=== PATIENT | female | born 1980 | race African-American/Black ===

== ENCOUNTER 2021-03-30 15:00 | Outpatient (CLI) | payer OTHER, SELFPAY ==
--- NOTE | ~2021-03-30 | MM_ITS ---
EXAMINATION: MM screening [facility] HISTORY: Screening mammogram TECHNIQUE: Craniocaudal and mediolateral oblique 3-D tomosynthesis images were obtained and synthetic 2-D images were generated. CAD analysis was submitted and interpreted. COMPARISON: None, baseline BREAST PARENCHYMAL COMPOSITION: There are scattered areas of fibroglandular density. FINDINGS: There is no evidence of suspicious mass, calcification, or architectural distortion to sugg est malignancy in either breast. IMPRESSION: 1. No mammographic evidence of malignancy. 2. Recommend routine screening mammography in one year. BI-RADS Category 1: Negative Reviewed, dictated and finalized at location A. RAM DIR
== END 2021-03-30 15:01 | disposition home or self-care (01) ==
LOC: ANHIMG 15:03
PROVIDERS: Visit Provider Obstetrics & Gynecology
DX: Z12.31 Encounter for screening mammogram for malignant neoplasm of breast (principal)
CPT/HCPCS: 77063; 77067

== ENCOUNTER 2021-04-13 07:00 | Emergency (ER) | payer OTHER, SELFPAY ==
[2021-04-13] VITALS (8 sets, daily range): BP systolic 111–117; BP diastolic 65–82; PULSE 66–82; RESP 15–18; TEMP 37; O2SAT 100
[2021-04-13 08:30] LABS: Add Urine Microscopic? YES; Appearance Urine Cloudy (Clear); Bacteria Urine Trace /hpf; Bilirubin Urine Negative (Negative); Blood Urine Negative (Negative); Color Urine Yellow (Yellow); Glucose Urine UA Negative (Negative); Ketones Urine Negative (Negative); Leukocyte Esterase Ur Negative LEU/UL (Negative); Mucus Urine Heavy /lpf; Nitrate Urine Negative (Negative); Protein Urine Negative (Negative); RBC Urine 0-2 /hpf (0-2); Specific Grav Ur 1.027 (1.001-1.035); Squamous Epithelial Cell Urine Moderate /hpf (Few); WBC Urine 0-3 /hpf
[2021-04-13] MEDS: KETOROLAC (*BKC) 60 MG/2 ML VIAL IM (09:16)
[2021-04-13] MEDS: CYCLOBENZAPRINE HCL 10 MG TABLET PO (09:23)
--- NOTE | 2021-04-13 11:05 | ED.BACK ---
HPI - Back Pain/Injury General Chief Complaint: Back Pain/Injury Stated Complaint: back pain Time Seen by Provider: 04/13/21 07:27 Source: patient Mode of arrival: ambulatory Limitations: no limitations History of Present Illness HPI Narrative: 40-year-old female Patient works at the [employer] She does not recall a distinct moment of injury but she has had pain in her left back worsened by movements and twisting for the past 2 days No numbness, weakness, radicular pain She does not have any urinary symptoms, no hematuria, no dysuria No abdominal pain, no nausea or vomiting, no fever, good appetite, no Covid exposures Related Data Allergies Allergy/AdvReac Type Severity Reaction Status Date / Time No Known Allergies Allergy Unverified 05/14/11 12:53 Review of Systems Review of Systems: All systems reviewed & are unremarkable except as noted in HPI and below Constitutional: Constitutional: Denies chills, Denies fever(s) and Denies headache(s) ENT: Denies headache(s) and Denies sore throat Cardiovascular: Cardiovascular: Denies chest pain and Denies dyspnea Respiratory: Respiratory: Denies cough and Denies dyspnea Gastrointestinal: Gastrointestinal: Denies abdominal pain, Denies bloating, Denies diarrhea, Denies nausea and Denies vomiting Genitourinary: Genitourinary: Denies hematuria, Denies urinary frequency, Denies nocturia and Denies dysuria Musculoskeletal: Musculoskeletal: Reports back pain, Denies deformity, Denies arthralgias, Denies joint swelling and Denies numbness Integumentary/Breasts: Skin/Breast: Denies rash and Denies wounds Neurologic: Denies headache(s), Denies focal weakness and Denies numbness Psychiatric: Psychiatric: Reports no additional psychiatric complaints Endocrine: Endocrine: Reports no additional endocrine complaints Hematologic/Lymphatic: Hematologic/Lymphatic: Reports no additional hematologic/lymphatic complaints Allergic/Immunologic: Allergic/Immunologic: Reports no additional allergic/immunologic complaints [facility] Family History Family History Father Patient's father is in good health Sibling Patient's sister is in good health Mother Patient's mother is Other Diabetes mellitus Social History Social History Smoking status: Former smoker Smoking end date: 05/08/03 Alcohol intake: current Exam Const: General: cooperative, healthy appearing, no acute distress and alert Orientation/consciousness: patient oriented x3 (alert) HENMT: Head: normal to inspection, normocephalic and atraumatic Ears: external ears normal General nose exam: no epistaxis Eyes: Conjunctivae: conjunctivae normal EOM: EOMs intact bilaterally Neck: Neck: normal visual inspection, supple and no JVD Chest: Chest palpation & inspection: normal inspection of the chest and no tenderness Resp: Effort & Inspection: normal respiratory effort and not labored Auscultation: clear to auscultation bilaterally, no rales, no rhonchi, no wheezes and other (BS =) Cardio: Rate: regular rate Rhythm: regular rhythm Heart sounds: no murmurs GI: Inspection: non-distended GI Palp: Yes Soft to palpation, No Tenderness to palpation present (GI), No Guarding due to palpation present (GI) and No Rebound tenderness present : General: Yes no CVA tenderness Back/Spine/Pelvis: Other: There is some mild tenderness posterior laterally and twisting movements of the trunk and forward flexion do exacerbate symptoms in that area, although leaning to the sides does not Skin: General skin exam: normal color and no rashes or lesions noted Rashes: no rashes Neuro: General: patient oriented x3 (alert) and moves all extremities Speech: normal speech Extrem: General: normal to inspection and no pedal edema Psych: Affect: normal affect Course Vital Signs Vital signs: Vital
== END 2021-04-13 11:50 | disposition home or self-care (01) ==
PROVIDERS: Emergency Provider Emergency Medicine
DX: S39.011A Strain of muscle, fascia and tendon of abdomen, initial encounter (principal); Z87.891 Personal history of nicotine dependence; X58.XXXA Exposure to other specified factors, initial encounter
CPT/HCPCS: 81001; 81025; 96372; 99283; A9270; J1885

== ENCOUNTER 2022-01-10 05:44 | Emergency (ER) | payer OTHER, SELFPAY ==
--- NOTE | ~2022-01-10 | XR_ITS ---
EXAMINATION: XR finger 1st LT min 2V DATE: 01/10/2022 06:54 INDICATION: Left thumb injury. TECHNIQUE: 3 views of left thumb were obtained. COMPARISON: None. FINDINGS: Bone alignment is normal. There is a small calcification at radial aspect of head of first metacarpal. Joint spaces are normal. IMPRESSION: 1. Small calcification at radial aspect of head of first metacarpal that may be an avulsion fracture. Reviewed, dictated and finalized at location A.
[2022-01-10 05:48] VITALS: BP 115/80; PULSE 77; RESP 17; TEMP 36.6; O2SAT 100
--- NOTE | 2022-01-10 06:13 | ED.GENADULT ---
HPI - General Adult General Chief complaint: Extremity Injury, Upper Stated complaint: left arm pain Time Seen by Provider: 01/10/22 05:56 History of Present Illness HPI narrative: Patient is a 41-year-old female who presents ER with pain to her left thumb. She was working last night with some machinery and felt a pop. She maintains range of motion of the thumb but has pain over the palmar aspect of the MCP. No numbness or tingling. Has not taken any pain medication. Patient also reports some chronic pain to the left shoulder that is been ongoing for months. Worse when she lays on it. Intense full range of motion of the shoulder. Has not seen an orthopedic despite her concerns for rotator cuff issue. No known injury to the area. Related Data Allergies Allergy/AdvReac Type Severity Reaction Status Date / Time No Known Allergies Allergy Verified 01/10/22 05:52 Review of Systems Musculoskeletal: Musculoskeletal: Reports arthralgias, Denies joint swelling and Denies muscle cramps Integumentary/Breasts: Skin/Breast: Denies erythema and Denies rash Neurologic: Denies focal weakness and Denies numbness PMFSH Past Medical History Medical History (Updated 01/10/22 @ 06:28 by Silas Bonilla MD) Healthy female adult Surgical History Surgical History (Updated 01/10/22 @ 06:26 by Silas Bonilla MD) No history of previous surgery Family History Family History Father Patient's father is in good health Sibling Patient's sister is in good health Mother Patient's mother is Other Diabetes mellitus Social History Social History Smoking status: Former smoker Smoking end date: 05/08/03 Alcohol intake: current Exam Narrative: GENERAL: Well-appearing, well-nourished, and in no acute distress. HEAD: Normocephalic, atraumatic. CHEST: Clear to auscultation. No respiratory distress. HEART: Regular rate and rhythm. Normal peripheral pulses. EXTREMITIES: Normal range of motion. No edema. Tender to palpation over the palmar aspect of the first MCP. No reproducible tenderness to the left shoulder. NEURO: Alert and oriented x3. PSYCH: Normal mood and affect. Course Course Emergency Course: Patient resting comfortably. Given ibuprofen for pain. Patient placed on 1 foam splint for comfort. Vital Signs Vital signs: Vital Signs Temperature 97.8 F 01/10/22 05:48 Pulse Rate 77 01/10/22 05:48 Respiratory Rate 17 01/10/22 05:48 Blood Pressure 115/80 01/10/22 05:48 Pulse Oximetry 100 01/10/22 05:48 Oxygen Delivery Room Air 01/10/22 05:48 Temperature 97.8 F 01/10/22 05:48 Pulse Rate 77 01/10/22 05:48 Respiratory Rate 17 01/10/22 05:48 Blood Pressure 115/80 01/10/22 05:48 Pulse Oximetry 100 01/10/22 05:48 Oxygen Delivery Room Air 01/10/22 05:48 Procedures Orthopedic Splinting/Casting Injury #1: Splinting/Casting Date: 01/10/22 Splinting/Casting Time: 06:59 Side: left Upper Extremity Injury Location: finger (thumb) Upper Extremity Immobilizer: aluminum form splint Pre-Procedure Neuro Vascular Exam: normal Post-Procedure Neuro Vascular Exam: normal Medical Decision Making Vital Signs Vital Signs: Vital Signs Temperature 97.8 F 01/10/22 05:48 Pulse Rate 77 01/10/22 05:48 Respiratory Rate 17 01/10/22 05:48 Blood Pressure 115/80 01/10/22 05:48 Pulse Oximetry 100 01/10/22 05:48 Oxygen Delivery Room Air 01/10/22 05:48 Temperature 97.8 F 01/10/22 05:48 Pulse Rate 77 01/10/22 05:48 Respiratory Rate 17 01/10/22 05:48 Blood Pressure 115/80 01/10/22 05:48 Pulse Oximetry 100 01/10/22 05:48 Oxygen Delivery Room Air 01/10/22 05:48 Imaging Data My impression: X-ray left thumb: No fracture. Discharge Plan Discharge Clinical Impression:
[2022-01-10] MEDS: IBUPROFEN 600 MG TABLET PO (06:16)
== END 2022-01-10 07:11 | disposition home or self-care (01) ==
PROVIDERS: Emergency Provider Emergency Medicine
DX: S63.602A Unspecified sprain of left thumb, initial encounter (principal); Z87.891 Personal history of nicotine dependence
CPT/HCPCS: 29130; 73140; 99283; A9270

== ENCOUNTER 2022-05-15 14:08 | Emergency (ER) | payer SELFPAY ==
[2022-05-15] VITALS (10 sets, daily range): BP systolic 129–153; BP diastolic 76–86; PULSE 67–86; RESP 13–23; TEMP 36.7; O2SAT 100
--- NOTE | ~2022-05-15 | XR_ITS ---
EXAMINATION: XR chest 2V 05/15/2022 14:24 INDICATION: Generalized chest pain PROCEDURE: 2 view chest COMPARISON: No prior studies for comparison. FINDINGS: The lungs are clear. The cardiomediastinal silhouette is within normal limits. There are no pleural effusions. There is no pneumothorax suspected. IMPRESSION: 1: NO ACUTE CARDIOPULMONARY DISEASE. Reviewed, dictated and finalized at location A. [employer]
--- NOTE | 2022-05-15 14:09 | ECG_ITS ---
Measurements Intervals Adel Rate: 78 P: 43 DC: 140 QRS: -5 QRSD: 93 T: 31 QT: 386 QTc: 440 Interpretive Statements SINUS RHYTHM DELAYED PRECORDIAL R/S TRANSITION BORDERLINE ECG NO PREVIOUS ECG AVAILABLE FOR COMPARISON Electronically Signed On 05-15-2022 15:12:25 [employer] by Giovanni Oleary D.O.
[2022-05-15 14:25] LABS: Basophils Absolute Auto 0.1 K/mm3 (0.0-0.1); Basophils Percent Auto 0.8 % (0.2-1.2); Eosinophils Absolute Auto 0.2 K/mm3 (0-0.3); Hematocrit 40.4 % (37.0-47.0); Hemoglobin 12.7 g/dL (12.0-15.0); Immature Granulocyte Absolute 0.02 K/mm3 (0.00-0.031); Immature Granulocyte Percent A 0.3 % (0-0.5); Lymphocytes Absolute Auto 1.21 K/mm3 (0.9-3.2); Lymphocytes Percent Auto 20.1 % (18.3-44.2); Mean Corpuscular HGB Conc 31.4 g/dl (32-36); Mean Corpuscular Hemoglobin 29.3 pg (26-34); Mean Corpuscular Volume 93.1 fl (80-100); Mean Platelet Volume 11.1 fl (7.4-10.4); Monocytes Absolute Auto 0.7 K/mm3 (0.1-0.6); Monocytes Percent Auto 11.5 % (2.6-8.5); Neutrophils Absolute Auto 3.9 K/mm3 (1.3-6.7); Neutrophils Percent Auto 64.3 % (45.5-73.1); Platelet Count Result 279 k/mm3 (150-375); Red Blood Count 4.34 M/mm3 (4.2-5.4); Red Cell Distribution Width 14.6 % (11.5-14.5)
[2022-05-15 14:34] LABS: Alanine Aminotransferase 18 U/L (6-35); Albumin Level 4.5 g/dL (3.5-5.1); Alkaline Phosphatase 66 U/L (38-126); Anion Gap 6 mmol/L (8-16); Aspartate Amino Transferase 27 U/L (14-36); Bilirubin,Total 0.8 mg/dL (0.2-1.3); Blood Urea Nitrogen 16 mg/dL (7-17); Calcium 8.6 mg/dL (8.4-10.2); Carbon Dioxide 26 mmol/L (22-30); Chloride 102 mmol/L (98-107); Estimated CRCL calculation 89 ml/min; Estimated Glomerular Filt Rate > 60; Glucose 96 mg/dL (65-110); Lipase 51 U/L (23-300); Potassium 3.8 mmol/L (3.4-5.0); Sodium 134 mmol/L (137-145)
[2022-05-15 14:35] LABS: INR 1.1; Prothrombin Time 13.6 Seconds (11.1-14.7)
[2022-05-15 14:46] LABS: Troponin I < 0.012 ng/mL (0.000-0.034)
--- NOTE | 2022-05-15 15:26 | ED.CHESTPAIN ---
HPI - Chest Pain General Chief Complaint: Chest Pain Stated Complaint: chest pain onset 1 hour ago Time Seen by Provider: 05/15/22 15:25 History of Present Illness HPI narrative: 41-year-old female here for evaluation of chest pain earlier today. Patient states that she had some pain in the center of her chest that came on while she was at [employer], described as sharp and stabbing in nature. The pain lasted for about 30 minutes before resolving without intervention. Currently pain-free. Denies any associated shortness of breath. No leg swelling, fevers or chills, nausea or vomiting, headaches, cough. History of acid reflux. Related Data Allergies Allergy/AdvReac Type Severity Reaction Status Date / Time No Known Allergies Allergy Verified 01/10/22 05:52 Review of Systems Review of Systems: Gen: Denies fevers or chills Eyes: Denies eye pain or visual change ENT: Denies congestion Respiratory: Denies shortness of breath or cough CV: Reports chest pain GI: Denies abdominal pain nausea, emesis or diarrhea : denies burning, urgency, frequency or hematuria Musculoskeletal: Denies back pain or muscle pain Neuro: Denies numbness, tingling, weakness or focal weakness Skin: Denies rash Except as documented, all other systems reviewed and negative PMFSH Past Medical History Medical History Healthy female adult Surgical History Surgical History No history of previous surgery Family History Family History Father Patient's father is in good health Sibling Patient's sister is in good health Mother Patient's mother is Other Diabetes mellitus Social History Social History Smoking status: Former smoker Smoking end date: 05/08/03 Alcohol intake: current Exam Narrative: APPEARANCE: Well appearing, no pain in distress, well-nourished. Head: Normocephalic and atraumatic. EYES: PERRLA/EOMI, conjunctivae clear NOSE: No nasal drainage EARS: External ear normal in appearance THROAT: Oropharynx is clear. Mucous membranes are moist. NECK: Supple. No adenopathy, no masses. RESPIRATORY: Airway patent, respirations nonlabored. Clear to auscultation bilaterally, no rales, rhonchi, wheezing. CARDIOVASCULAR: Regular rate and rhythm without murmurs, rubs, or gallops. ABDOMINAL: Normoactive bowel sounds. Soft, nontender, nondistended. No rebound tenderness or guarding. MUSCULOSKELETAL: Extremities are warm and well-perfused. Moves all extremities well. No edema. NEURO: Normal speech. No focal neurologic deficits. SKIN: Skin is warm and dry. No rashes. PSYCHIATRIC: Normal affect/mood. Course Vital Signs Vital signs: Vital Signs Temperature 98.0 F 05/15/22 14:12 Pulse Rate 86 05/15/22 14:12 Respiratory Rate 16 05/15/22 14:12 Blood Pressure 153/86 H 05/15/22 14:12 Pulse Oximetry 100 05/15/22 14:12 Oxygen Delivery Room Air 05/15/22 14:12 Temperature 98.0 F 05/15/22 14:12 Pulse Rate 74 05/15/22 17:13 Respiratory Rate 17 05/15/22 17:00 Blood Pressure 129/76 05/15/22 17:00 Pulse Oximetry 100 05/15/22 17:00 Oxygen Delivery Room Air 05/15/22 14:12 MDM - Chest Pain MDM Narrative Medical decision making narrative: 41-year-old female here for evaluation of an episode of chest pain lasting 30 minutes earlier today. Exam without evidence of volume overload so doubt heart failure. EKG without signs of active ischemia. Given the timing of pain to ER presentation, single troponin was negative so doubt NSTEMI. Presentation not consistent with acute PE (negative dimer),pneumothorax (not visualized on chest xr), thoracic aortic dissection, pericarditis, tamponade, pneumonia (no infectious symptoms, clear chest xr), myocarditis (no recent illness
[2022-05-15 16:24] LABS: D Dimer 0.45 ug/mL (<0.48)
== END 2022-05-15 17:15 | disposition home or self-care (01) ==
PROVIDERS: Emergency Medicine; Emergency Provider Physician Assistant
DX: R07.89 Other chest pain (principal); Z87.891 Personal history of nicotine dependence
CPT/HCPCS: 36415; 71046; 80053; 83690; 84484; 85025; 85380; 85610; 85730; 93005; 99284